=== PATIENT | male | born 1970 | race Caucasian/White ===

== ENCOUNTER 2017-09-30 19:02 | Emergency (ER) | payer SELFPAY ==
[~2017-09-30] VITALS: Ht 162.6 cm; Wt 100.0 kg
[2017-09-30 19:07] VITALS: Ht 162.6 cm; Wt 100.0 kg
--- NOTE | 2017-10-01 00:06 | RADRPT ---
PROCEDURE: XR Chest. CLINICAL INDICATION: Shortness of breath. TECHNIQUE: AP Portable chest. COMPARISON: No pertinent prior examinations were submitted for comparison. FINDINGS: The cardiomediastinal silhouette is normal. The lungs are clear. The osseous structures are unrema rkable. IMPRESSION: No acute findings. RPTAT: HIKT .Ger Sher MD, MD Date Time Electronically viewed and signed by .Ger Sher MD, MD on 10/01/2017 00:06 .T/
--- NOTE | 2017-10-01 00:38 | ERD ---
ER Documentation Chief Complaint Chief Complaint bib ra from street for etoh HPI 47-year-old male brought in by ambulance for alcohol intoxication. He was found on the street sleeping. Patient complains of a chronic cough but denies any associated chest pain or shortness of breath. He denies any fevers or chills. He keeps asking for his phone. He does not know how he got here today. ROS Limited secondary to intoxication Medications Home Meds Unable to Obtain Active Prescriptions or Reported Meds Allergies Allergies: Coded Allergies: No Known Allergy (Unverified , 09/30/17) PMhx/Soc Medical and Surgical Hx: pt denies Medical Hx, pt denies Surgical Hx Hx Alcohol Use: No Hx Substance Use: No Hx Tobacco Use: No Smoking Status: Current every day smoker FmHx Family History: other (Unable to obtain) Physical Exam Vitals Vital Signs Date Time Temp Pulse Resp B/P Pulse Ox O2 Delivery O2 Flow Rate FiO2 09/30/17 23:00 98.5 90 19 131/82 98 Room Air 09/30/17 19:48 98.6 89 18 135/81 95 Room Air 09/30/17 19:07 98.6 91 18 141/81 96 Physical Exam Const: No apparent distress, clearly intoxicated. Frequently coughs on exam. Head: Atraumatic Eyes: Bilateral conjunctival injection, PERRLA ENT: Dry mucous membranes, no epistaxis, no facial injury Neck: Full range of motion..~ No meningismus. No C-spine tenderness Resp: Clear to auscultation bilaterally Cardio: Regular rate and rhythm, no murmurs Abd: Soft, non tender, non distended. Normal bowel sounds Skin: No petechiae or rashes Back: No midline or flank tenderness Ext: No cyanosis, or edema Neur: Sleepy but arousable. Normal speech. Moving all extremities. Psych: Normal Mood and Affect Procedures/MDM Chest x-ray done shows no acute abnormalities. Patients presented with altered mental status. Vitals were unremarkable. Patient maintaining airway. Based on EMS report and exam, patients AMS is likely related to alcohol or drug intoxication. I have a low suspicion for serious metabolic or electrolyte derangement, intracranial hemorrhage, acute infectious process, meningitis/encephalitis, or CVA. Patient was observed for 6 hours in the ER with improvement of mental status. Upon discharge, patient was ambulating with a steady gait and tolerating food. Departure Diagnosis: Primary Impression: Alcoholic intoxication Complication of substance-induced condition: uncomplicated Qualified Code: F10.920 - Alcoholic intoxication without complication Additional Impression: Cough Condition: Stable Patient Instructions: Cough, Chronic, Uncertain Cause, (Adult), Alcohol Intoxication Ref[facility]: [facility] Usted se stock hecho un examen mdico de control que le indica que no est en lexa condicin que requiera tratamiento urgente en el Departamento de Emergencia. Un estudio ms profundo y el tratamiento de ruth condicin pueden esperar sin ningn riesgo hasta que usted sea atendida/o en el consultorio de ruth mdico o lexa cl jadiel. Es responsabilidad suya arreglar lexa leeann para el seguimiento del jadyn. MANEJO DE CONDICIONES NO URGENTES EN EL FUTURO 1) Si usted tiene un mdico de atencin primaria: Usted debera llamar a ruth mdico de atencin primaria antes de venir al departamento de emergencia. Despus de las horas de consultorio, ruth doctor o ruth asociado/a est disponible por telfono. El mdico o enfermero de marilynn en el servicio telefnico puede asesorarle por kavita medio para atender el problema, o jadyn contrario se puede programar lexa leeann. 2) Si usted no tiene un mdico de atencin primaria: Llame al mdico o clnica de referencia que aparece abajo donald las horas de consultorio para hacer lexa leeann para que le vean. CLINICAS: [facility] [phone] [address] [facility] [phone] [facility] [phone] [address] [facility] [phone] [address] [facility] [phone] [address] [facility]. [phone] MD Oct 01, 2017 00:38
[2017-10-01 03:58] VITALS: BP 120/81; PULSE 91; RESP 19; TEMP 98
== END 2017-10-01 03:58 | disposition home or self-care (01) ==
LOC: E/R 19:02
DX: F10.920 Alcohol use, unspecified with intoxication, uncomplicated (principal); R05 Cough; F17.210 Nicotine dependence, cigarettes, uncomplicated
CPT/HCPCS: 71010